=== PATIENT | female | born 1975 | race Caucasian/White ===

== ENCOUNTER 2017-04-11 17:14 | Emergency (ER) | payer SELFPAY ==
[~2017-04-11] VITALS: Ht 162.6 cm; Wt 118.2 kg
[2017-04-11 17:18] VITALS: BP 164/83
== END 2017-04-11 18:22 | disposition left against medical advice (07) ==
LOC: EMS 17:17
DX: M54.5 Low back pain (principal); E03.9 Hypothyroidism, unspecified; Z53.21 Procedure and treatment not carried out due to patient leaving prior to being seen by health care provider